=== PATIENT | female | born 1995 | race African-American/Black ===

== ENCOUNTER 2017-02-01 09:09 | Emergency (ER) | payer OTHER, MEDICAID ==
[~2017-02-01 09:09] MED LIST: UNK MED
== END 2017-02-01 10:25 | disposition left against medical advice (07) ==
LOC: ER 10:16
DX: Z53.21 Procedure and treatment not carried out due to patient leaving prior to being seen by health care provider (principal)

== ENCOUNTER 2024-09-25 21:17 | Emergency (ER) | payer MEDICAID, OTHER ==
[~2024-09-25] VITALS: Ht 162.6 cm; Wt 69.0 kg
[2024-09-25 21:19] VITALS: O2SAT 98
[2024-09-25 22:11] LABS: BASOPHILS % 0.7 % (0.0-2.0); DIFFERENTIAL COMMENT 0; EOSINOPHILS % 0.3 % (0.0-5.0); HEMOGLOBIN. 9.1 g/dL (12.0-16.0); LYMPHOCYTES % 16.5 % (20.0-50.0); MEAN CORPUSCULAR HEMOGLOBIN 23.1 pg (28.0-32.0); MEAN CORPUSCULAR HGB CONC 31.3 g/dL (31.0-37.0); MEAN CORPUSCULAR VOLUME 73.6 fL (81.0-99.0); MEAN PLATELET VOLUME 9.3 fl (7.4-10.4); MONOCYTES % 5.7 % (2.0-8.0); NEUTROPHILS % 76.8 % (40.0-76.0); PLATELET 183 x1000/uL (130-400); RED BLOOD CELL COUNT 3.93 mill/uL (4.2-5.4); RED CELL DISTRIBUTION WIDTH 15.6 % (11.6-14.6); WHITE BLOOD COUNT 9.1 x1000/uL (4.5-11.0)
[2024-09-25] MEDS: ACETAMINOPHEN 325MG TABLET PO ONE (22:18)
[2024-09-25] MEDS: SODIUM CHLORIDE 0.9% 1,000 ML IV ONE (22:18)
[2024-09-25 22:30] LABS: CHLORIDE 106 mEq/L (98-107); POTASSIUM 3.6 mEq/L (3.5-5.1); SODIUM 135 mEq/L (136-145)
[2024-09-25 22:31] LABS: CALCIUM 9.1 mg/dL (8.7-10.4); CARBON DIOXIDE 22 mEq/L (21-32)
[2024-09-25 22:36] LABS: CREATININE 0.4 mg/dL (0.6-1.0); GLUCOSE 85 mg/dL (70-105); UREA NITROGEN BLOOD 6 mg/dL (9-23)
[2024-09-25 22:38] LABS: ALANINE AMINOTRANSFERASE 17 IU/L (10-49); ALBUMIN 3.7 g/dL (3.2-4.8); ASPARTATE AMINOTRANSFERASE 21 IU/L (<34); BILIRUBIN DIRECT 0.2 mg/dL (<=3.0)
[2024-09-25 22:39] LABS: BILIRUBIN TOTAL 0.8 mg/dL (0.1-1.0); PROTEIN TOTAL 6.5 g/dL (6.0-8.3)
[2024-09-25 22:45] VITALS: BP 125/65; PULSE 70; RESP 24; TEMP 36.78072; O2SAT 98
[2024-09-25 23:09] LABS: B-HCG QUANTITATIVE 11261 mIU/mL (<3)
== END 2024-09-25 23:05 | disposition short-term general hospital (02) ==
LOC: ER 21:17
DX: O26.893 Other specified pregnancy related conditions, third trimester (principal); R10.2 Pelvic and perineal pain; F12.10 Cannabis abuse, uncomplicated; Z3A.36 36 weeks gestation of pregnancy
CPT/HCPCS: 99291; 96360; 80076; 80048; 84702; 83690; 85025; 86850; 86900; 86901; 36415; 76815; J7030